=== PATIENT | male | born 2000 | race Caucasian/White ===

== ENCOUNTER 2025-01-14 18:57 | Outpatient (REF) | payer OTHER, SELFPAY ==
--- NOTE | ~2025-01-14 | MR_ITS ---
CLINICAL HISTORY: PAIN MR elbow without gadolinium Comparison: None provided Findings: Osseous Structures and Bone Marrow: There is no evidence of fracture, contusion, or AVN. Ligaments and Tendons: The distal biceps tendon and aponeurosis are intact with a normal insertion into the radial tuberosity. The distal triceps tendon is also intact with no evidence of rupture or significant tendinopathy. The origins of the common flexor and common extensor tendons into the medial and lateral epicondyles are unremarkable. There is no MRI evidence of epicondylitis. The ulnar collateral, radial collateral, and lateral ulnar collateral ligaments have a normal MRI appearance with no evidence of rupture. Joint Spaces and Soft Tissues: No significant joint effusion is noted. The alignment is normal. No soft tissue masses or abnormalities are identified. There is no MRI evidence of muscle tear or significant hematoma. There is fluid within the olecranon bursa, sagittal image number 13 of 27, with adjacent inflammatory changes. Impression: 1. Olecranon bursitis (student's elbow). This document has been electronically signed by: Indio Hollis MD on 01/14/2025 20:37:38
--- OUTSIDE RECORDS SUMMARY | 2025-01-14 19:08 | XMS_ITS | Clinical Summary ---
Author Organization [facility] Address [address] [place] [address] Phone Care Team Providers Care Test Desk Operator Name Role Phone Bertin Mccoy Primary Care Provider [phone] Allergies No known active allergies Medications No known medications Social History Tobacco Use Types Packs/Day Years Used Date Smoking Tobacco: Never Smokeless Tobacco: Never Tobacco Cessation:Counseling Given: Not Answered Education Answer Date Recorded Are you interested in more education? Not on cheryl e 07/27/2022 Are you concerned about learning? Not on file 07/27/2022 No 07/27/2022 No 07/27/2022 Digital Access Answer Date Recorded No 08/25/2022 No 08/25/2022 No 08/25/2022 Reliable internet access at home? Not on file 08/25/2022 Device with a working camera? Not on file Sex and Gender Information Value Date Recorded Sex Assigned at Not on file Legal Sex Male 3:21 PM EDT Gender Identity Not on file Sexual Orientation Not on file Last Filed Vital Signs Vital Sign Reading Time Taken Comments Blood Pressure - - Pulse - - Temperature - - Respiratory Rate - - Oxygen Saturation - - Inhaled Oxygen Concentration - - Weight 88.5 kg (195 lb) 07/04/2022 2:54 PM EDT Height 188 cm (6' 2 ) 07/04/2022 2:54 PM EDT Body Mass Index 25.04 07/04/2022 2:54 PM EDT Plan of Treatment Health Maintenance Due Date Last Done Comments Adult Td,Tdap Booster 2000 DEPRESSION SCREENING 2012 SMOKING Hx and SMOKELESS TOBACCO SCREENING 2013 HPV VACCINES (1 - Male 3-dos e series) 08/08/2015 HEPATITIS C SCREENING 2018 HIV ONE-TIME SCREENING (18-6 5 YEARS) 2018 INFLUENZA VACCINE (#1) 2024 01/14/2022 COVID-19 VACCINE (2024-2 6 season) 2024 09/06/2021, 08/08/2020 HEPATITIS A VACCINES Aged Out No long er eligible based on patient's age to complete this topic HIB VACCINES Aged Out No longer eligi ble based on patient's age to complete this topic MENINGOCOCCAL VACCINES (ACWY) Aged Out No longer eligible based on patient's age to complete this topic MENINGOCOCCAL VACCINES (B) Aged Out N o longer eligible based on patient's age to complete this topic PNEUMOCOCCAL VACCINES (0-49 years) Aged Out No longer eligible b ased on patient's age to complete this topic Medical Devices Not on file Insurance [address] [place], [place] [address] [place], [place] [address]O Care Teams Test Desk Operator Relationship Specialty Start Date End Date Bertin Mccoy DO [address] [place] [address] PCP - General Family Medicine 06/28/22 Additional Source Comments The information contained in this document represents components of the legal health record. It is not the complete legal health record.[facility]
--- OUTSIDE RECORDS SUMMARY | 2025-01-14 19:08 | XMS_ITS | Encounter Summary ---
Author Organization [facility] Address [address] [place] [address] Phone Care Team Providers Care Oracle Applications Developer Name Role Phone Bertin Mccoy DO Primary Care Provider [phone] Reason for Referral * MRI/CAT Scan - Closed Specialty Diagnoses / Procedures Referred By Veronica javed Referred To Contact Radiology Diagnoses Left hip pain Procedures MRI Hip (Left) CHG MRI, JOINT OF LEG. COMBO CHG MRI LOWER EXTREM JT, W/O CONTRAST Bertin Mccoy DO [address] [place] [address] Phone: tel: fax: [email or web address] Referral ID Status Reason Start Date Expiration Date Visits Re quested Visits Authorized [id number] Closed 06/19/2022 08/18/2022 1 1 Encounter Details Date Type Department Care Team (Late st Contact Info) Description 06/27/2022 Transcribe Orders Virtual Department [address] [place] [address] Bertin Mccoy DO [address] [place] [address] Left hip pain (Primary Dx) Social History Tobacco Use Types Packs/Day Years Used Date Smoking Tobacco: Never Assessed Sex and Gender Information Value Date Recorded Sex Assigned at Not on file Legal Sex Male 3:21 PM EDT Gender Identity Not on file Sexual Orientation Not on file documented as of this encounter Plan of Treatment Not on file documented as of this encounter Results * MRI HIP WITHOUT CONTRAST (LEFT) (07/04/2022 4:11 PM EDT) Anatomical Region Laterality Modality Hip Left Magnetic Resonan ce 07/05/2022 12:2 6 AM EDT Impressions 07/05/2022 12:35 AM EDT 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 Suspected posterior acetabular labral tear. No significant cartilage loss. 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 Narrative 07/05/2022 12:35 AM EDT MRI HIP WITHOUT CONTRAST (LEFT) TECHNIQUE: MRI HIP WITHOUT CONTRAST (LEFT) COMPARISON: None FINDINGS: ENTIRE PELVIS: No fracture, sacroiliitis, or focal bone lesion. No visceral pelvis soft tissue abnormality. Incidental pincer-type femoral acetabular impingement on the right. 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 No fracture, osteonecrosis, or marrow replacing lesion. JOINT: Suspected posterior labral tear (image 7:18). No full-thickness cartilage defect or subchondral bone marrow edema. TENDONS: Normal gluteus, iliopsoas, rectus femoris, and proximal hamstrings tendons. No bursal collection SOFT TISSUES: Normal muscle bulk and signal intensity. Procedure Note Jay Ureña MD - 07/05/2022 MRI HIP WITHOUT CONTRAST (LEFT) TECHNIQUE: MRI HIP WITHOUT CONTRAST (LEFT) COMPARISON: None FINDINGS: ENTIRE PELVIS: No fracture, sacroiliitis, or focal bone lesion. Novisceral pelvis soft tissue abnormality. Incidental pincer-type femoralacetabular impingement on the right. 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 No fracture,osteonecrosis, or marrow replacing lesion. JOINT: Suspected posterior labral tear (image 7:18). No full-thicknesscartilage defect or subchondral bone marrow edema. TENDONS: Normal gluteus, iliopsoas, rectus femoris, and proximalhamstrings tendons. No bursal collection SOFT TISSUES: Normal muscle bulk and signal intensity. 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 Suspected posterior acetabular labral tear. No significant cartilage loss. Incidental suspected pincer-type [facility]. Bertin Mccoy DO IMG MR EXTREMITY Final Result documented in this encounter Visit Diagnoses Diagnosis Left hip pain- Primary Pain in joint, pelvic region and thigh Left hip pain Pain in joint, pelvic region and thigh documented in this encounter Care Teams Oracle Applications Developer Relationship Specialty Start Date End Date Bertin Mccoy DO [address] [place] [address] [email or web address] PCP - General Family Medicine 06/28/22 documented as of this encounter Additional Source Comments The information contained in this document represents components of the legal health record. It is not the complete legal health record.[facility]
--- OUTSIDE RECORDS SUMMARY | 2025-01-14 19:08 | XMS_ITS | Encounter Summary ---
Author Organization [facility] Address [address] [facility] [address] [place] [address] Phone Care Team Providers Care Modular Set Crew Member Name Role Phone Bertin Mccoy DO Primary Care Provider [phone] Encounter Details Date Type Department Care Team (Late st Contact Info) Description 06/27/2022 Procedure Pass [address] [place] [address] Social History Tobacco Use Types Packs/Day Years Used Date Smoking Tobacco: Never Assessed Sex and Gender Information Value Date Recorded Sex Assigned at Not on file Legal Sex Male 3:21 PM EDT Gender Identity Not on file Sexual Orientation Not on file documented as of this encounter Last Filed Vital Signs Vital Sign Reading Time Taken Comments Blood Pressure - - Pulse - - Temperature - - Respiratory Rate - - Oxygen Saturation - - Inhaled Oxygen Concentration - - Weight 47.6 kg (105 lb) 06/28/2022 5:10 PM EDT Height 188 cm (6' 2 ) 06/28/2022 5:10 PM EDT Body Mass Index 25.04 07/04/2022 2:54 PM EDT documented in this encounter Plan of Treatment Not on file documented as of this encounter Visit Diagnoses Not on filedocumented in this encounter Care Teams Modular Set Crew Member Relationship Specialty Start Date End Date Bertin Mccoy DO [address] [place] [address] PCP - General Family Medicine 06/28/22 documented as of this encounter Additional Source Comments The information contained in this document represents components of the legal health record. It is not the complete legal health record.[facility]
== END 2025-01-14 18:58 | disposition home or self-care (01) ==
LOC: HO.MRI 18:57
PROVIDERS: Visit Provider Family Medicine
DX: M25.522 Pain in left elbow (principal)
CPT/HCPCS: 73221

== ENCOUNTER → 2025-01-14 19:15 | Outpatient (BNV) | payer OTHER, SELFPAY | PROVIDERS: Visit Provider Radiology Diagnostic Radiology | DX: M70.22 Olecranon bursitis, left elbow (principal) | CPT/HCPCS: 73221 ==

== ENCOUNTER 2025-01-27 14:00 | Outpatient (REF) | payer OTHER, SELFPAY ==
--- OUTSIDE RECORDS SUMMARY | 2025-01-28 14:05 | XMS_ITS | Encounter Summary ---
Author Organization [facility] Address [address] [facility] [address] [place] [address] Phone Care Team Providers Care Sagger Preparer Name Role Phone Bertin Mccoy DO Primary Care Provider [phone] Encounter Details Date Type Department Care Team (Late st Contact Info) Description 06/27/2022 Procedure Pass [address] [place] [address] Social History Tobacco Use Types Packs/Day Years [...] on filedocumented in this encounter Care Teams Sagger Preparer Relationship Specialty Start Date End Date Bertin Mccoy DO [address] [place] [address] PCP - General Family Medicine 06/28/22 documented as of this encounter Additional Source Comments The information contained in this document represents components of the legal health record. It is not the complete legal health record.[facility]
--- OUTSIDE RECORDS SUMMARY | 2025-01-28 14:05 | XMS_ITS | Encounter Summary ---
Author Organization [facility] Address [address] [place] [address] Phone Care Team Providers Care Gm Name Role Phone Bertin Mccoy DO Primary Care Provider [phone] Reason for Referral * MRI/CAT Scan - Closed Specialty Diagnoses / Procedures Referred By Veronica javed Referred To Contact Radiology Diagnoses Left hip pain Procedures MRI Hip (Left) CHG MRI, JOINT OF LEG. COMBO CHG MRI LOWER EXTREM JT, W/O CONTRAST Bertin Mccoy DO [address] [place] [address] Phone: tel: fax: [email or web address] Referral ID Status Reason Start Date Expiration Date Visits Re quested Visits Authorized [id number] Closed 06/19/2022 08/18/2022 1 1 Encounter Details Date Type Department Care Team (Late st Contact Info) Description 06/27/2022 Transcribe Orders Virtual Department [address] [place] [address] Bertin Mccoy DO [address] [place] [address] Left hip pain (Primary Dx) Social History [...] Incidental suspected pincer-[facility] Bertin Mccoy DO IMG MR EXTREMITY Final Result documented in this encounter Visit Diagnoses Diagnosis Left hip pain- Primary Pain in joint, pelvic region and thigh Left hip pain Pain in joint, pelvic region and thigh documented in this encounter Care Teams Gm Relationship Specialty Start Date End Date Bertin Mccoy DO [address] [place] [address] [email or web address] PCP - General Family Medicine 06/28/22 documented as of this encounter Additional Source Comments The information contained in this document represents components of the legal health record. It is not the complete legal health record.[facility]
--- OUTSIDE RECORDS SUMMARY | 2025-01-28 14:05 | XMS_ITS | Clinical Summary ---
Author Organization [facility] Address [address] [facility] [address] [place] [address] Phone Care Team Providers Care Solvent Process Extractor Operator Name Role Phone Bertin Mccoy Primary Care Provider [phone] Allergies No known active allergies Medications No known medications Encounters Date Type Department Care Team Description 01/18/2025 2:30 PM EDT Office Visit [facility] Orthopedics & Sports Medicine [address] [place] [address] [place] [address] Chato Mendosa DO Cellulitis of left elbow [...] topic Medical Devices Not on file Insurance [address] [place], [place] [address]O [employer] [place] [id number] [employer] [address] [place] [address] [address] [employer] [place] [address] [facility] [employer] Care Teams Solvent Process Extractor Operator Relationship Specialty Start Date End Date Bertin Mccoy DO [address] [place] [address] [email or web address] PCP - General Family Medicine 06/28/22 Additional Source Comments The information contained in this document represents components of the legal health record. It is not the complete legal health record.[facility]
== END 2025-01-27 14:01 | disposition home or self-care (01) ==
LOC: HO.LNP 14:00
PROVIDERS: Visit Provider Orthopaedic Surgery
DX: M70.22 Olecranon bursitis, left elbow (principal)
CPT/HCPCS: 87070; 87205; J2003

== ENCOUNTER 2025-01-27 14:00 | Outpatient (AMB) | payer OTHER, SELFPAY ==
--- NOTE | 2025-01-27 14:06 | A.OFFVIS_ITS ---
Intake Visit Reasons: New Pt - Left Elbow Intake Note: Mahamed is a 24 year old male who presents today for Left Elbow Swelling. 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 He describes injuring it last season and developed some initial pain and swelling in his went away and then earlier this season approximately 4-6 weeks ago started developing swelling over the olecranon bursa. He describes this having ?popped? in that he had more disseminated swelling less focal swelling over the olecranon. This however progressed into worsening pain and an inability to play into use his left elbow with restriction in motion both in flexion and extension. He was initially treated with NSAIDs and then concern for septic bursitis nancy and she was treated for 2 weeks with doxycycline and then this was followed by a steroid injection after symptoms did not improve. He states he got a little better on antibiotics and he states he got a little better with steroid injection but he is still far from comfortable and unable to play. He had labs at [facility] which were unremarkable. He had a negative ESR/CRP and normal white count. Physical Exam Exam Exam: Pleasant gentleman no acute distress Left elbow notable for 5-95 degrees of motion. He is very tender over the distal triceps and distal posterior arm and into the olecranon but more so proximally 4-5 cm proximal to the olecranon. There is mild erythema and swelling when compared to the contralateral elbow. He is markedly tender to touch. Neurovascularly intact left extremity. Office Procedures Joint Inj/Aspir; Non-Pain Clin Joint Injection/Drain Details: Attempted an aspiration of the olecranon bursa. Using an 18g needle and aseptic technique. The aspiration yielded < 1/2ml of nl serosanguinous fluid. Prep: site was prepped using aseptic technique Procedure: The patient tolerated the procedure well Elbows, Wrist, Hands, Elbow Injection Medium joint 72859: Left Elbow Coding Procedure code (CPT) selection complete Results Reviewed Results Reviewed: I personally reviewed the MR images. MRI shows swelling in the olecranon bursa with adjacent inflammatory changes. Assessment & Plan Assessment & Plan (1) Olecranon bursitis of left elbow: Code(s): M70.22 - Olecranon bursitis, left elbow Category: Medical Plan: This is a 24-year-old gentleman with refractory olecranon bursitis. Labs were unremarkable and not concerning for infection however his lack of improvement and his swelling and erythema with loss of range of motion as well as his sensitivity to touch awere worrisome for cellulitis/septic bursitis. After attempting to aspirate unsuccessfully I discussed with the patient in his father the option of making a parul incision and obtaining culture and seeing if we could obtain any significant fluid that may help us either rule in or rule out an infection. They agreed and informed consent was signed. Under sterile technique a 5mm parul incision was made with a 15 blade just radial to midline approximately 3-4 cm proximal to the olecranon. Once he was anesthetized I spread down into the olecranon bursa. A Q-tip was used to obtain a culture and I attempted to express fluid from the bursa and surrounding area. There was no purulence or abnormal appearing fluid. The wound was then irrigated and packed with quarter-inch iodoform gauze and sterile dressings. The plan is to remove the packing in approx. 24 hours and then daily dry dressing changes. We will await the cultures in his start him on antibiotics. As of now this appears to be refractory atypical aseptic olecranon bursitis. It is abnormal and that it is not localized to the bursa and that there is significant swelling over the distal 3rd of the posterior humerus that is affecting his range of motion and this has been occurring for over a month. I had a long discussion with him and his father. There continues to be no evidence of infection however and I am hesitant to operate on olecranon bursitis even if it is refractory to treatment. I think the best course of action is to await the results of the cultures and see if he does not improve on a different antibiotic than prior. This is a decision made out of an abundance of caution as the evidence points to atypical aseptic bursitis. They expressed understanding. We will see him back in my office 3-4 days. Orders: Orders Routine Culture w Gram Stain 01/27/25 M70.22 - Olecranon bursitis, left elbow Medications: New cephalexin 500 mg PO Q6H 28 caps 0RF 7 days Coding Level of Care Code New Pt Level 4 (49998) Diagnoses Olecranon bursitis of left elbow M70.22 CPT Codes Elbows, Wrist, Hands, - Elbow Injection Medium joint : Left Elbow ([id number])
--- OUTSIDE RECORDS SUMMARY | 2025-01-27 17:02 | XMS_ITS | Clinical Summary ---
Author Organization [facility] Address [address] [facility] [address] [place] [address] Phone Care Team Providers Care Classification Counselor Name Role Phone Bertin Mccoy Primary Care Provider [phone] Allergies No known active allergies Medications No known medications Encounters Date Type Department Care Team Description 01/18/2025 2:30 PM EDT Office Visit [facility] Orthopedics & Sports Medicine [address] [place] [address] [place] [address] Chato Mendosa DO Cellulitis of left elbow (Primary Dx) from Last 3 Months Social History Tobacco Use Types Packs/Day Years [...] INFLUENZA VACCINE (#1) 2024 01/14/2022 COVID-19 VACCINE (3 - 2024-2 6 season) 2024 09/06/2021, 08/08/2020 HEPATITIS A [...] topic Medical Devices Not on file Insurance [address] [place], [place] [id number] [employer] [place] [id number] [employer] [address] [address] [place] [address] [id number] [employer] [place] [id number] [facility] [employer] Care Teams Classification Counselor Relationship Specialty Start Date End Date Bertin Mccoy DO [address] [place] [address] [email or web address] PCP - General Family Medicine 06/28/22 Additional Source Comments The information contained in this document represents components of the legal health record. It is not the complete legal health record.[facility]
--- OUTSIDE RECORDS SUMMARY | 2025-01-27 17:02 | XMS_ITS | Encounter Summary ---
Author Organization [facility] Address [address] [place] [address] Phone Care Team Providers Care Alterations Tailor Name Role Phone Bertin Mccoy DO Primary Care Provider [phone] Reason for Referral * MRI/CAT Scan - Closed Specialty Diagnoses / Procedures Referred By Veronica javed Referred To Contact Radiology Diagnoses Left hip pain Procedures MRI Hip (Left) CHG MRI, JOINT OF LEG. COMBO CHG MRI LOWER EXTREM JT, W/O CONTRAST Bertin Mccoy DO [address] [place] [address] Phone: tel: fax: [email or web address] Referral ID Status Reason Start Date Expiration Date Visits Re quested Visits Authorized [id number] Closed 06/19/2022 08/18/2022 1 1 Encounter Details Date Type Department Care Team (Late st Contact Info) Description 06/27/2022 Transcribe Orders Virtual Department [address] [place] [address] Bertin Mccoy DO [address] [place] [address] Left hip pain (Primary Dx) Social History [...] Incidental suspected pincer-[facility]. Bertin Mccoy DO IMG MR EXTREMITY Final Result documented in this encounter Visit Diagnoses Diagnosis Left hip pain- Primary Pain in joint, pelvic region and thigh Left hip pain Pain in joint, pelvic region and thigh documented in this encounter Care Teams Alterations Tailor Relationship Specialty Start Date End Date Bertin Mccoy DO [address] [place] [address] [email or web address] PCP - General Family Medicine 06/28/22 documented as of this encounter Additional Source Comments The information contained in this document represents components of the legal health record. It is not the complete legal health record.[facility]
--- OUTSIDE RECORDS SUMMARY | 2025-01-27 17:02 | XMS_ITS | Encounter Summary ---
Author Organization [facility] Address [address] [facility] [address] [place] [address] Phone Care Team Providers Care Fruit Peeler Name Role Phone Bertin Mccoy DO Primary Care Provider [phone] Encounter Details Date Type Department Care Team (Late st Contact Info) Description 06/27/2022 Procedure Pass [address] [place] [address] Social History Tobacco Use Types Packs/Day Years [...] on filedocumented in this encounter Care Teams Fruit Peeler Relationship Specialty Start Date End Date Bertin Mccoy DO [address] [place] [address] PCP - General Family Medicine 06/28/22 documented as of this encounter Additional Source Comments The information contained in this document represents components of the legal health record. It is not the complete legal health record.[facility]
== END 2025-01-27 15:17 | disposition home or self-care (01) ==
LOC: HO.HOS 14:01
PROVIDERS: Visit Provider Orthopaedic Surgery
DX: M70.22 Olecranon bursitis, left elbow (principal)
CPT/HCPCS: 20605; 99204

== ENCOUNTER 2025-01-31 10:41 | Outpatient (AMB) | payer OTHER, SELFPAY ==
--- NOTE | 2025-01-31 10:47 | A.OFFVIS_ITS ---
Intake Visit Reasons: OV - Left Elbow f/u s/p aspiration 01/27 Intake Note: Mahamed is a 24 year old male who presents today for a follow up of his left elbow s/p aspiration on 01/27/25. Wound culture was sent to the lab which results state there was no growth. Allergies No Known Allergies (No Known Allergies*) Allergy (Unverified 01/27/25 14:07) HPI HPI OV - Left Elbow f/u s/p aspiration 01/27: Details: Mahamed comes in today after was seen last . In the interim he had an opinion with Dr. Jose who, according to the patient and to his operations trainer, suggested may be proving the spectrum of antibiotic coverage but otherwise there is no change in plan. Mahamed reports that he is feeling slightly better today but has not done a lot last 4 days in his recovering the aspiration last week. He has been taking Keflex. He has not noticed any fevers or chills in his no increased swelling. Physical Exam Exam Exam: Stab incision clean dry and intact. His motion is limited approximately 40-90 degrees. No discharge. Tenderness about the olecranon bursa but more proximal ly into the posterior triceps region. Assessment & Plan Assessment & Plan (1) Olecranon bursitis of left elbow: Code(s): M70.22 - Olecranon bursitis, left elbow Category: Medical Plan: Cultures from last week came back negative. He has no evidence of infection but I can not completely excluded given his clinical course. I had a long discussion with him in his father. At this point I recommend aggressive PT for range of motion, anti-inflammatories and continuation of the antibiotics. We discussed broadening the spectrum of antibiotics as well as surgery and a repeat MRI. I think we should wait on any of these. Surgery will not only further delay his range of motion but con found his clinical course. I am most concerned with his elbow stiffness and I think we need to work on aggressive range of motion. I will continue to follow him closely. I sent diclofenac 75 mg b.i.d. to his pharmacy Medications: New diclofenac sodium 75 mg PO BID 60 tabs 0RF Coding Level of Care Code Est Pt Level 3 (70757) Diagnoses Olecranon bursitis of left elbow M70.22
--- OUTSIDE RECORDS SUMMARY | 2025-01-31 13:05 | XMS_ITS | Clinical Summary ---
Author Organization [facility] Address [address] [facility] [address] [place] [address] Phone Care Team Providers Care Environmental Projects Advisor Name Role Phone Bertin Mccoy Primary Care Provider Allergies No known active allergies Medications No known medications Encounters Date Type Department Care Team Description 01/18/2025 2:30 PM EDT Office Visit [facility] Orthopedics & Sports Medicine [address] [place] [address] [place] [address] Chato Mendosa DO Cellulitis of left elbow [...] topic Medical Devices Not on file Insurance [address] [place], [place] [id number] [employer] [id number] [employer] [place] [address] [place] [address] [address] [employer] [place] [address] [facility] [employer] Care Teams Environmental Projects Advisor Relationship Specialty Start Date End Date Bertin Mccoy DO [address] [place] [address] [email or web address] PCP - General Family Medicine 06/28/22 Additional Source Comments The information contained in this document represents components of the legal health record. It is not the complete legal health record.[facility]
--- OUTSIDE RECORDS SUMMARY | 2025-01-31 13:05 | XMS_ITS | Encounter Summary ---
Author Organization [facility] Address [address] [facility] [address] [place] [address] Phone Care Team Providers Care Equipment Installer Name Role Phone Bertin Mccoy DO Primary Care Provider [phone] Encounter Details Date Type Department Care Team (Late st Contact Info) Description 06/27/2022 Procedure Pass [address] [place] [address] Social History Tobacco Use Types Packs/Day Years [...] on filedocumented in this encounter Care Teams Equipment Installer Relationship Specialty Start Date End Date Bertin Mccoy DO [address] [place] [address] PCP - General Family Medicine 06/28/22 documented as of this encounter Additional Source Comments The information contained in this document represents components of the legal health record. It is not the complete legal health record.[facility]
--- OUTSIDE RECORDS SUMMARY | 2025-01-31 13:05 | XMS_ITS | Encounter Summary ---
Author Organization [facility] Address [address] [place] [address] Phone Care Team Providers Care Kalsominer Name Role Phone Bertin Mccoy DO Primary Care Provider [phone] Reason for Referral * MRI/CAT Scan - Closed Specialty Diagnoses / Procedures Referred By Veronica javed Referred To Contact Radiology Diagnoses Left hip pain Procedures MRI Hip (Left) CHG MRI, JOINT OF LEG. COMBO CHG MRI LOWER EXTREM JT, W/O CONTRAST Bertin Mccoy DO [address] [place] [address] Phone: tel: fax: [email or web address] Referral ID Status Reason Start Date Expiration Date Visits Re quested Visits Authorized [id number] Closed 06/19/2022 08/18/2022 1 1 Encounter Details Date Type Department Care Team (Late st Contact Info) Description 06/27/2022 Transcribe Orders Virtual Department [address] [place] [address] Bertin Mccoy DO [address] [place] [address] Left hip pain (Primary Dx) Social History [...] Incidental suspected pincer-type femoral acetabular [facility]. Bertin Mccoy DO IMG MR EXTREMITY Final Result documented in this encounter Visit Diagnoses Diagnosis Left hip pain- Primary Pain in joint, pelvic region and thigh Left hip pain Pain in joint, pelvic region and thigh documented in this encounter Care Teams Kalsominer Relationship Specialty Start Date End Date Bertin Mccoy DO [address] [place] [address] [email or web address] PCP - General Family Medicine 06/28/22 documented as of this encounter Additional Source Comments The information contained in this document represents components of the legal health record. It is not the complete legal health record.[facility]
== END 2025-01-31 11:48 | disposition home or self-care (01) ==
LOC: HO.HOS 10:42
PROVIDERS: Visit Provider Orthopaedic Surgery
DX: M70.22 Olecranon bursitis, left elbow (principal)
CPT/HCPCS: 99213

== ENCOUNTER 2025-02-03 09:20 | Outpatient (AMB) | payer OTHER, SELFPAY ==
--- NOTE | 2025-02-03 09:22 | MHC.OFFVIS ---
Intake Visit Reasons: Follow Up Intake Note: Follow Up Allergies No Known Allergies (No Known Allergies*) Allergy (Unverified 01/27/25 14:07) HPI HPI Follow Up: Details: Improving compared to prior. Still with stiffness and pain but redness and swelling improved. Physical Exam Exam Exam: small poke incision healing well no erythema 30-90 deg motion Assessment & Plan Assessment & Plan (1) Olecranon bursitis of left elbow: Code(s): M70.22 - Olecranon bursitis, left elbow Category: Medical Plan: Olecranon bursitis elbow vs septic bursitis ve cellulitis. Cultures and labwork negative but atypical presentation and so we started on abx and dioclofenac and he is improving. Continue Diclofenac and abx and will follow up in one week. Agressive ROM and inflammation management. Medications: Changed From cephalexin 500 mg PO Q6H 7 days 28 caps 0RF To cephalexin 500 mg PO Q6H 40 caps 0RF 10 days Coding Level of Care Code Est Pt Level 3 (02295) Diagnoses Olecranon bursitis of left elbow M70.22
--- OUTSIDE RECORDS SUMMARY | 2025-02-03 10:18 | XMS_ITS | Encounter Summary ---
Author Organization [facility] Address [address] [place] [address] Phone Care Team Providers Care Endless Track Vehicle Mechanic Name Role Phone Bertin Mccoy DO Primary Care Provider [phone] Reason for Referral * MRI/CAT Scan - Closed Specialty Diagnoses / Procedures Referred By Veronica javed Referred To Contact Radiology Diagnoses Left hip pain Procedures MRI Hip (Left) CHG MRI, JOINT OF LEG. COMBO CHG MRI LOWER EXTREM JT, W/O CONTRAST Bertin Mccoy DO [address] [place] [address] Phone: tel: fax: [email or web address] Referral ID Status Reason Start Date Expiration Date Visits Re quested Visits Authorized [id number] Closed 06/19/2022 08/18/2022 1 1 Encounter Details Date Type Department Care Team (Late st Contact Info) Description 06/27/2022 Transcribe Orders Virtual Department [address] [place] [address] Bertin Mccoy DO [address] [place] [address] Left hip pain (Primary Dx) Social History [...] thigh documented in this encounter Care Teams Endless Track Vehicle Mechanic Relationship Specialty Start Date End Date Bertin Mccoy DO [address] [place] [address] [email or web address] PCP - General Family Medicine 06/28/22 documented as of this encounter Additional Source Comments The information contained in this document represents components of the legal health record. It is not the complete legal health record.[facility]
--- OUTSIDE RECORDS SUMMARY | 2025-02-03 10:18 | XMS_ITS | Clinical Summary ---
Author Organization [facility] Address [address] [facility] [address] [place] [address] Phone Care Team Providers Care Energy Assistant Name Role Phone Bertin Mccoy Primary Care Provider [phone] Allergies No known active allergies Medications No known medications Encounters Date Type Department Care Team Description 01/18/2025 2:30 PM EDT Office Visit [facility] Orthopedics & Sports Medicine [address] [place] [address] [place] [address] Chato Mendosa DO Cellulitis of left elbow [...] topic Medical Devices Not on file Insurance [address] [place], [place] [address]O [employer] [place] [id number] [employer] [address] [place], [place] [address] [place] [address] [employer] [place] [address] [facility] [employer] Care Teams Energy Assistant Relationship Specialty Start Date End Date Bertin Mccoy DO [address] [place] [address] [email or web address] PCP - General Family Medicine 06/28/22 Additional Source Comments The information contained in this document represents components of the legal health record. It is not the complete legal health record.[facility]
--- OUTSIDE RECORDS SUMMARY | 2025-02-03 10:18 | XMS_ITS | Encounter Summary ---
Author Organization [facility] Address [address] [facility] [address] [place] [address] Phone Care Team Providers Care Transonic Engineer Name Role Phone Bertin Mccoy DO Primary Care Provider [phone] Encounter Details Date Type Department Care Team (Late st Contact Info) Description 06/27/2022 Procedure Pass [address] [place] [address] Social History Tobacco Use Types Packs/Day Years [...] on filedocumented in this encounter Care Teams Transonic Engineer Relationship Specialty Start Date End Date Bertin Mccoy DO [address] [place] [phone] PCP - General Family Medicine 06/28/22 documented as of this encounter Additional Source Comments The information contained in this document represents components of the legal health record. It is not the complete legal health record.[facility]
== END 2025-02-03 09:22 | disposition home or self-care (01) ==
LOC: HO.HMGUMA 09:20
PROVIDERS: Visit Provider Orthopaedic Surgery
DX: M70.22 Olecranon bursitis, left elbow (principal)
CPT/HCPCS: 99213

== ENCOUNTER 2025-02-14 10:27 | Outpatient (AMB) | payer OTHER, SELFPAY ==
--- NOTE | 2025-02-14 10:41 | MHC.OFFVIS ---
Intake Visit Reasons: OV - Left Elbow Intake Note: Mahamed is a 24 year old male, [employer] Student, who presents today for a follow up of his Left Elbow. Allergies No Known Allergies (No Known Allergies*) Allergy (Unverified 01/27/25 14:07) HPI HPI OV - Left Elbow: Details: Mahamed is a 24 year old male, [employer] Student, who presents today for a follow up of his Left Elbow. He is improving. He has full extension and still limited in flexion to about 90 degrees. He states the erythema and redness and swelling have all improved. He has not been 72 hours now. Physical Exam Exam Exam: Small stab incision from prior bedside procedure is healed nicely. There is some mild bursal swelling and thickness in the triceps region. He has good strength with activating the triceps but his flexion is limited to about 95 degrees. Full extension. Assessment & Plan Assessment & Plan (1) Olecranon bursitis of left elbow: Code(s): M70.22 - Olecranon bursitis, left elbow Category: Medical Plan: Mahamed is improving. I think it is reasonable to get him out on the ice and have him see gait without contact. We still do not have a definitive diagnosis in the sense that it is possible he had a cellulitic infection that was treated with 2 weeks of Keflex. The other possibility is that he has improving bursitis and that he has benefitted from the diclofenac. Cultures were negative and when I a made a stab incision and opened up his elbow there was nothing unusual and my findings. Regardless he is improving and so I recommend we continue with the diclofenac and I will see him back in a approximately 1 week and make sure he continues to improve. Coding Level of Care Code Est Pt Level 3 (53182) Diagnoses Olecranon bursitis of left elbow M70.22
== END 2025-02-14 11:26 | disposition home or self-care (01) ==
LOC: HO.HOS 10:28
PROVIDERS: Visit Provider Orthopaedic Surgery
DX: M70.22 Olecranon bursitis, left elbow (principal)
CPT/HCPCS: 99213

== ENCOUNTER 2025-02-21 12:20 | Outpatient (AMB) | payer OTHER, SELFPAY ==
--- NOTE | 2025-02-21 12:20 | MHC.OFFVIS ---
Intake Visit Reasons: Follow Up End User Support Specialist Required: No Allergies No Known Allergies (No Known Allergies*) Allergy (Unverified 01/27/25 14:07) HPI HPI Follow Up: Details: Candidate continues to improve. He has full extension and 110 degrees of flexion. Physical Exam Exam Exam: 0-110 degrees of motion. Full supination and pronation. Fibrotic tissue in the distal triceps but no erythema and no tenderness to palpation. Assessment & Plan Assessment & Plan (1) Olecranon bursitis of left elbow: Code(s): M70.22 - Olecranon bursitis, left elbow Category: Medical Plan: Continue known contact but okay to his gait. Continue aggressive range of motion. Follow up 2 weeks. Continue diclofenac. Coding Level of Care Code Est Pt Level 4 (84770) Diagnoses Olecranon bursitis of left elbow M70.22
--- OUTSIDE RECORDS SUMMARY | 2025-02-21 16:19 | XMS_ITS | Encounter Summary ---
Author Organization [facility] Address [address] [facility] [address] [place] [address] Phone Care Team Providers Care Machine Straw Hat Presser Name Role Phone Bertin Mccoy DO Primary Care Provider [phone] Encounter Details Date Type Department Care Team (Late st Contact Info) Description 06/27/2022 Procedure Pass [address] [place] [address] Social History Tobacco Use Types Packs/Day Years [...] on filedocumented in this encounter Care Teams Machine Straw Hat Presser Relationship Specialty Start Date End Date Bertin Mccoy DO [address] [place] [address] PCP - General Family Medicine 06/28/22 documented as of this encounter Additional Source Comments The information contained in this document represents components of the legal health record. It is not the complete legal health record.[facility]
--- OUTSIDE RECORDS SUMMARY | 2025-02-21 16:19 | XMS_ITS | Clinical Summary ---
Author Organization [facility] Address [address] [facility] [address] [place] [address] Phone Care Team Providers Care Regulatory Intern Name Role Phone Bertin Mccoy Primary Care Provider [phone] Allergies No known active allergies Medications No known medications Encounters Date Type Department Care Team Description 01/18/2025 2:30 PM EDT Office Visit [facility] Orthopedics & Sports Medicine [address] [place] [address] [place] [address] Chato Mendosa DO Cellulitis of left elbow [...] topic Medical Devices Not on file Insurance [address] [place], [place] [address]O [employer] [id number] [employer] [address] [place] [address] [place] [address] [employer] [place] [address] [facility] [employer] Care Teams Regulatory Intern Relationship Specialty Start Date End Date Bertin Mccoy DO [address] [place] [address] [email or web address] PCP - General Family Medicine 06/28/22 Additional Source Comments The information contained in this document represents components of the legal health record. It is not the complete legal health record.[facility]
--- OUTSIDE RECORDS SUMMARY | 2025-02-21 16:19 | XMS_ITS | Encounter Summary ---
Author Organization [facility] Address [address] [place] [address] Phone Care Team Providers Care Mission Support Specialist Name Role Phone Bertin Mccoy DO Primary Care Provider [phone] Reason for Referral * MRI/CAT Scan - Closed Specialty Diagnoses / Procedures Referred By Veronica javed Referred To Contact Radiology Diagnoses Left hip pain Procedures MRI Hip (Left) CHG MRI, JOINT OF LEG. COMBO CHG MRI LOWER EXTREM JT, W/O CONTRAST Bertin Mccoy DO [address] [place] [address] Phone: tel: fax: [email or web address] Referral ID Status Reason Start Date Expiration Date Visits Re quested Visits Authorized [id number] Closed 06/19/2022 08/18/2022 1 1 Encounter Details Date Type Department Care Team (Late st Contact Info) Description 06/27/2022 Transcribe Orders Virtual Department [address] [place] [address] Bertin Mccoy DO [address] [place] [address] Left hip pain (Primary Dx) Social History [...] Incidental suspected pincer-[facility] Bertin Mccoy DO IMG MR EXTREMITY Final Result documented in this encounter Visit Diagnoses Diagnosis Left hip pain- Primary Pain in joint, pelvic region and thigh Left hip pain Pain in joint, pelvic region and thigh documented in this encounter Care Teams Mission Support Specialist Relationship Specialty Start Date End Date eBrtin Mccoy DO [address] [place] [address] [email or web address] PCP - General Family Medicine 06/28/22 documented as of this encounter Additional Source Comments The information contained in this document represents components of the legal health record. It is not the complete legal health record.[facility]
== END 2025-02-21 12:21 | disposition home or self-care (01) ==
LOC: HO.HMGUMA 12:20
PROVIDERS: Visit Provider Orthopaedic Surgery
DX: M70.22 Olecranon bursitis, left elbow (principal)
CPT/HCPCS: 99214

== ENCOUNTER 2025-03-04 10:01 | Outpatient (AMB) | payer OTHER, SELFPAY ==
--- NOTE | 2025-03-04 10:04 | A.OFFVIS_ITS ---
Intake Visit Reasons: Follow Up Spa Receptionist Required: No Allergies No Known Allergies (No Known Allergies*) Allergy (Unverified 01/27/25 14:07) HPI HPI Follow Up: Details: Mahamed is doing well. He has full extension and near full flexion. He has some pain which is descended down into the distal olecranon bursa but minimal swelling. Physical Exam Exam Exam: Full extension and a loss of proximally 5 degrees of terminal flexion. Full supination pronation. There is fibrotic tissue over the distal triceps that is improved from prior and he has mild tenderness over the olecranon bursa without erythema or warmth. Assessment & Plan Assessment & Plan (1) Olecranon bursitis of left elbow: Code(s): M70.22 - Olecranon bursitis, left elbow Category: Medical Plan: Continuing to improve. He has a break from the season and I think he should continue skating on his own working on fitness but no contact. He will follow up and see me in 2 weeks' time. I wrote him a prescription for a lower dose NSAID which she will slowly transition to and wean off over the next several weeks. Medications: New diclofenac sodium 50 mg PO BID PRN 20 tabs 0RF pain 10 days Coding Level of Care Code Est Pt Level 3 (64913) Diagnoses Olecranon bursitis of left elbow M70.22
== END 2025-03-04 10:04 | disposition home or self-care (01) ==
LOC: HO.HMGUMA 10:01
PROVIDERS: Visit Provider Orthopaedic Surgery
DX: M70.22 Olecranon bursitis, left elbow (principal)
CPT/HCPCS: 99213